=== PATIENT | female | born 1965 | race American Indian/Alaskan Native ===

== ENCOUNTER 2017-10-20 23:10 | Inpatient (IN) | payer MEDICARE ==
[2017-10-21 00:38] LABS: Basophils % (Auto) 0.7 % (0.0-1.8); Eosinophils # (Auto) 0.2 K/mm3 (0.0-0.4); Eosinophils % (Auto) 3.1 % (0.0-4.3); Hematocrit 30.1 % (30.3-42.9); Hemoglobin 9.6 gm/dl (10.1-14.3); Lymphocytes # (Auto) 1.1 K/mm3 (1.2-5.4); Lymphocytes % (Auto) 15.6 % (13.4-35.0); Mean Corpuscular HGB Conc 32 % (30-34); Mean Corpuscular Hemoglobin 29 pg (28-32); Mean Corpuscular Volume 90 fl (79-97); Monocytes # (Auto) 0.9 K/mm3 (0.0-0.8); Platelet Count 221 K/mm3 (140-440); Red Blood Count 3.34 M/mm3 (3.65-5.03); Red Cell Distribution Width 14.4 % (13.2-15.2)
[2017-10-21 00:49] LABS: Calcium 10.1 mg/dL (8.4-10.2)
--- NOTE | 2017-10-21 01:04 | XRay Report ---
FINAL REPORT EXAM: XR CHEST ROUTINE 2V HISTORY: Shortness of breath TECHNIQUE: PA and lateral views of the chest were obtained. FINDINGS: The cardiac silhouette is moderately enlarged. The lungs are not congested. There are increased markings in the lingula and left lower lobe compatible some combination of atelectasis and scarring. There mild increased markings in the right lung base medially. Pleural fluid is not seen. The skeletal structures do not show any acute changes. IMPRESSION: Atelectatic changes/scarring in the lingula left lower lobe and to lesser extent in the right lung base medially. Moderate enlargement of the cardiac silhouette. As to whether this is related to cardiomegaly versus pericardial effusion is uncertain.
--- NOTE | 2017-10-21 05:56 | Emergency Department Report ---
ED Shortness of Breath HPI - General Chief Complaint: Dyspnea/Respdistress Stated Complaint: SANTIAGO Time Seen by Provider: 10/21/17 05:55 Source: patient Mode of arrival: Ambulatory Limitations: No Limitations - History of Present Illness Initial Comments: Patient was recently discharged from the hospital. She came back to the emergency room this morning complaining of shortness of breath. Patient is sent at today's dialysis day. MD Complaint: shortness of breath -: Gradual Severity: moderate Pain Scale: 5 Improves With: nothing Worsens With: nothing Treatments Prior to Arrival: none - Related Data Home Medications Medication Instructions Recorded Confirmed Last Taken ALPRAZolam [Xanax TAB] 2 mg PO BID PRN 10/21/17 10/21/17 Unknown Aspirin [Adult Low Dose Aspirin EC] 81 mg PO DAILY 10/21/17 10/21/17 Unknown Carvedilol [Coreg] 12.5 mg PO BID 10/21/17 10/21/17 Unknown Cinacalcet HCl [Sensipar] 120 mg PO QDAY 10/21/17 10/21/17 Unknown Clotrimazole/Betamethasone Dip 1 applic TP BID 10/21/17 10/21/17 Unknown [Lotrisone Cream] Lidocain2.5%/Prilocai2.5% [Emla] 1 applic TP 3XW 10/21/17 10/21/17 Unknown NIFEdipine XL [Procardia Xl] 90 mg PO QDAY 10/21/17 10/21/17 Unknown Oxycodone HCl/Acetaminophen 1 each PO Q8H PRN 10/21/17 10/21/17 Unknown [Percocet 10/325 mg] Sevelamer Carbonate [Renvela] 4,000 mg PO AC 10/21/17 10/21/17 Unknown diphenhydrAMINE [Benadryl CAP] 50 mg PO BID PRN 10/21/17 10/21/17 Unknown Allergies Allergy/AdvReac Type Severity Reaction Status Date / Time heparin Allergy Itching Verified 10/21/17 00:09 ED Review of Systems ROS: Stated complaint: SANTIAGO Other details as noted in HPI Comment: All other systems reviewed and negative Constitutional: denies: chills, fever Eyes: denies: eye pain ENT: denies: ear pain Respiratory: shortness of breath, SOB with exertion, SOB at rest Cardiovascular: denies: chest pain, palpitations Endocrine: no symptoms reported Gastrointestinal: denies: abdominal pain, nausea, vomiting, diarrhea Musculoskeletal: denies: back pain, joint swelling Skin: denies: rash Neurological: denies: headache, weakness, numbness Psychiatric: denies: anxiety, depression Hematological/Lymphatic: denies: easy bleeding, easy bruising ED Past Medical Hx - Past Medical History Previous Medical History?: Yes Hx Hypertension: Yes Hx Congestive Heart Failure: Yes Hx Diabetes: Yes Hx Renal Disease: Yes (DIALYSIS -W-) Hx COPD: Yes (home O2 3lpm) - Surgical History Past Surgical History?: Yes Additional Surgical History: LUE fistula, hysterectomy - Social History Smoking Status: Current Every Day Smoker - Medications Home Medications: Home Medications Medication Instructions Recorded Confirmed Last Taken Type ALPRAZolam [Xanax TAB] 2 mg PO BID PRN 10/21/17 10/21/17 Unknown History Aspirin [Adult Low Dose Aspirin EC] 81 mg PO DAILY 10/21/17 10/21/17 Unknown History Carvedilol [Coreg] 12.5 mg PO BID 10/21/17 10/21/17 Unknown History Cinacalcet HCl [Sensipar] 120 mg PO QDAY 10/21/17 10/21/17 Unknown History Clotrimazole/Betamethasone Dip 1 applic TP BID 10/21/17 10/21/17 Unknown History [Lotrisone Cream] Lidocain2.5%/Prilocai2.5% [Emla] 1 applic TP 3XW 10/21/17 10/21/17 Unknown History NIFEdipine XL [Procardia Xl] 90 mg PO QDAY 10/21/17 10/21/17 Unknown History Oxycodone HCl/Acetaminophen 1 each PO Q8H PRN 10/21/17 10/21/17 Unknown History [Percocet 10/325 mg] Sevelamer Carbonate [Renvela] 4,000 mg PO AC 10/21/17 10/21/17 Unknown History diphenhydrAMINE [Benadryl CAP] 50 mg PO BID PRN 10/21/17 10/21/17 Unknown History ED Physical Exam - General Limitations: No Limitations General appearance: alert, in no apparent distress - Head Head exam: Present: atraumatic, normal inspection - Eye Eye exam: Present: normal appearance, PERRL, EOMI Pupils: Present: normal accommodation - ENT ENT exam: Present: normal exam, normal orophraynx, mucous membranes moist - Neck Neck exam: Present: normal inspection, full ROM. Absent: tenderness - Respiratory Respiratory exam: Present: respiratory distress, rales, rhonchi - Cardiovascular Cardiovascular Exam: Present: regular rate, normal rhythm, normal heart sounds - GI/Abdominal GI/Abdominal exam: Present: soft, normal bowel sounds. Absent: distended, tenderness, guarding, rebound - Extremities Exam Extremities exam: Present: normal inspection, full ROM, normal capillary refill - Back Exam Back exam: Present: normal inspection, full ROM - Neurological Exam Neurological exam: Present: alert, oriented X3, CN II-XII intact - Psychiatric Psychiatric exam: Present: normal affect, normal mood - Skin Skin exam: Present: warm, dry, intact, normal color ED Course Vital Signs 10/20/17 10/21/17 10/21/17 23:59 06:08 07:00 Temperature 97.8 F 97.6 F Pulse Rate 84 82 75 Respiratory 12 18 19 Rate Blood Pressure 136/84 127/72 Blood Pressure 136/79 [Right] O2 Sat by Pulse 95 98 99 Oximetry 10/21/17 10/21/17 10/21/17 07:30 08:00 09:00 Temperature Pulse Rate 77 84 85 Respiratory 20 19 19 Rate Blood Pressure 127/72 124/82 130/85 Blood Pressure [Right] O2 Sat by Pulse 98 93 92 Oximetry 10/21/17 10/21/17 10/21/17 10:00 10:01 12:01 Temperature 97.6 F Pulse Rate 85 Respiratory 17 19 Rate Blood Pressure 130/85 130/85 Blood Pressure [Right] O2 Sat by Pulse Oximetry - Reevaluation(s) Reevaluation #1: 10/21/17 15:00 I consulted a well service pump equipment operator on-call Dr Deshpande. He recommended admitting the patient to the hospital by the hospitalist and he will dialyze the patient today. I discussed patient care with the hospitalist on-call Dr. pruitt. Patient will be admitted to the hospitalist Dr. Edna Kovacs for further evaluation and management. ED Medical Decision Making - Lab Data Result diagrams: 10/21/17 00:22 10/21/17 00:22 - EKG Data -: EKG Interpreted by Me EKG shows normal: sinus rhythm Rate: normal (82) - EKG Data When compared to previous EKG there are: changes noted Interpretation: nonspecific ST-T wave aaron, LVH, other (First degree AV Block, LAE, LVH with repolarization abnormality. Lateral T wave inversion.) - Radiology Data Radiology results: report reviewed, image reviewed - Medical Decision Making Volume Overload. ESRD. Critical care attestation.: If time is entered above; I have spent that time in minutes in the direct care of this critically ill patient, excluding procedure time. ED Disposition Clinical Impression: ESRD (end stage renal disease) on dialysis, Elevated troponin Volume overload Qualifiers: Hypervolemia type: unspecified Qualified Code(s): E87.70 - Fluid overload, unspecified Dyspnea Qualifiers: Dyspnea type: unspecified Qualified Code(s): R06.00 - Dyspnea, unspecified Disposition: DC-09 OP ADMIT IP TO THIS HOSP Is pt being admited?: Yes Does the pt Need Aspirin: Yes Condition: Stable Time of Disposition: 08:10
[2017-10-21 06:39] LABS: INR 0.93 (0.87-1.13)
[2017-10-21 06:40] LABS: Partial Thromboplastin Time 42.5 Sec. (24.2-36.6)
[2017-10-21 07:15] LABS: Albumin 3.7 g/dL (3.9-5); Bilirubin,Direct 0.2 mg/dL (0-0.2)
[2017-10-21 07:27] LABS: Chol/HDL Ratio 3.73 %
--- NOTE | 2017-10-21 08:22 | Consultation ---
History of Present Illness - Reason for Consult Consult date: 10/21/17 end stage renal disease - History of Present Illness The patient is a 52 year old female with medical history significant for ESRD on hemodialysis MWF, Hypertension, CHF, Anemia, COPD dependent on home O2, Tobacco use, Seizures and Medical non-compliance who presented to the ER complaining of shortness of breath since yesterday. Patient was treated for respiratory distress +/- volume overload and discharged from the hospital yesterday. She developed SOB after went home. She continues to smoke one pack of cigarettes a day. On arrival her room air sat was in 80s, improved with O2 by NC. She is followed by Dr. Lang. The previous admission was under the following MR number: [id number]. Past History Past Medical History: anemia, COPD, dialysis, ESRD, heart failure, hypertension Medications and Allergies Allergies Allergy/AdvReac Type Severity Reaction Status Date / Time heparin Allergy Itching Verified 10/21/17 00:09 Home Medications Medication Instructions Recorded Confirmed Last Taken Type ALPRAZolam [Xanax TAB] 0.5 mg PO Q12HR #20 tablet 06/03/14 Unknown Rx Bisacodyl [Dulcolax suppos] 10 mg [place] QDAY PRN #20 supp.rect 06/03/14 Unknown Rx Ipratropium/Albuterol Sulfate 1 ampul IH TIDRT #30 ampul.neb 06/03/14 Unknown Rx [DUONEB *Not for PRN Use*] Metoprolol [Lopressor TAB] 25 mg PO BID #60 tablet 06/03/14 Unknown Rx Sevelamer Carbonate [Renvela] 2,400 mg PO AC #120 tablet 06/03/14 Unknown Rx Simvastatin [Zocor TAB] 20 mg PO QHS #30 tablet 06/03/14 Unknown Rx diphenhydrAMINE [Benadryl CAP] 25 mg PO Q8H PRN #20 capsule 06/03/14 Unknown Rx oxyCODONE /ACETAMINOPHEN [Percocet 1 tab PO Q6H PRN #14 tablet 06/03/14 Unknown Rx 5/325 mg] Azithromycin [Zithromax Z-MEGAN] 250 mg PO DAILY #6 tablet 11/06/14 Unknown Rx Pantoprazole [Protonix TAB] 20 mg PO BID #60 tablet. 11/06/14 Unknown Rx Review of Systems Constitutional: no weight loss, no weight gain, no fever, no chills, no anorexia Ears, nose, mouth and throat: no epistaxis Breasts: deferred Cardiovascular: shortness of breath, dyspnea on exertion, high blood pressure, decreased exercise tolerance, no chest pain, no orthopnea, no palpitations, no edema, no syncope, no lightheadedness, no leg edema Respiratory: cough, shortness of breath, dyspnea on exertion, no hemoptysis Gastrointestinal: no abdominal pain, no nausea, no vomiting, no diarrhea, no melena Genitourinary Female: no dysuria, no hematuria Rectal: no bleeding Musculoskeletal: no redness of joints Integumentary: no rash, no wounds, no jaundice Neurological: no paralysis Exam - Vital Signs Vital signs: Vital Signs Temp Pulse Resp BP Pulse Ox 97.8 F 84 12 136/84 95 10/20/17 23:59 10/20/17 23:59 10/20/17 23:59 10/20/17 23:59 10/20/17 23:59 - General Appearance General appearance: well-developed, appears stated age, other (no distress) EENT: ATNC, hearing intact Neck: Present: neck supple, trachea midline Respiratory: Rales, Ronchi Heart: regular, S1S2, no murmurs Gastrointestinal: Present: normoactive bowel sounds. Absent: tenderness Integumentary: no rash, warm and dry Neurologic: no asterixis, alert and oriented x3, other (able to move all 4 extremities) Musculoskeletal: Present: other (no edema, left arm AVF) Results - Lab Results 10/21/17 00:22 10/21/17 00:22 Most recent lab results Calcium 10.1 mg/dL (8.4-10.2) 10/21/17 00:22 Assessment and Plan 1. ESRD: Continue hemodialysis three times a week. HD today. 2. HTN: Continue home meds. UF with HD today. 3. Anemia: Epogen. 4. Hypoxic Respiratory failure: H/o COPD and Tobacco use. 5. H/o CHF. 6. Medical non-compliance: Compliance encouraged.
[2017-10-21] MEDS ORDERED: NACL 0.9% 100 ML IV PRN (08:30)
[2017-10-21] MEDS ORDERED: BABY ASPIRIN PO ONE (09:10)
--- NOTE | 2017-10-21 10:47 | Event Note ---
Date: 10/21/17 I was called by Dr. Kovacs who knows Ms. Escobar well. I placed discharge order per Dr. Kovacs's instruction.
[2017-10-21] MEDS ORDERED: PROCRIT SUB-Q SCH (11:00)
[2017-10-21 12:42] VITALS: BP 130/85
--- NOTE | 2017-10-21 14:14 | Event Note ---
52F with htn, esrd, chf, who was recently admitted for Fluid overload, non compliance with HD, fluid overload and hyperkalemia. During previous admission, she received HD, meds were optimized and she was dc. She had expressed that she didn't want to be dc as she is currently homeless, she presented <12 hours after dc c/o sob. Her vitals and labs were unremarkable, she was advised to fup for she scheduled outpatient HD and dc. Dr Camara assisted me with placing the dc order, but did not see the patient. The patient was seen and examined by myself
== END 2017-10-21 12:50 | disposition home or self-care (01) | DRG 189 ==
LOC: ED 23:10 → 3A 10-21 09:10
PROVIDERS: ADMIT Internal Medicine; ATTEND Internal Medicine
DX: J96.91 Respiratory failure, unspecified with hypoxia (principal); N18.6 End stage renal disease; I13.2 Hypertensive heart and chronic kidney disease with heart failure and with stage 5 chronic kidney disease, or end stage renal disease; E87.70 Fluid overload, unspecified; Z99.2 Dependence on renal dialysis; I50.9 Heart failure, unspecified; D64.9 Anemia, unspecified; E87.5 Hyperkalemia; J44.9 Chronic obstructive pulmonary disease, unspecified; Z99.81 Dependence on supplemental oxygen; Z91.14 Patient's other noncompliance with medication regimen; Z88.8 Allergy status to other drugs, medicaments and biological substances; Z59.0 Homelessness; Z90.710 Acquired absence of both cervix and uterus
CPT/HCPCS: 36415; 71046; 80048; 80061; 80074; 83880; 84484; 85025; 85610; 85730; 93005; 93010